=== PATIENT | female | born 1945 | race Caucasian/White ===

== ENCOUNTER 2017-03-05 05:00 | Day surgery (SDC) | payer BC ==
[2017-03-02 08:23] VITALS: BMI 47.0
--- NOTE | 2017-03-02 08:46 | PAT Medication Instructions ---
Service Date Mar 02, 2017. Current Home Medication List Aspirin (Aspirin Adult Low Strengt), 81 MG PO QAM Calcium Carbonate-Vitamin D (Calcium + D), 1 TAB PO QAM Fish Oil (Troy-3), 1 CAP PO QAM Qidimueynit-Wktngiysoev-Aiv C- (Glucosamine Chondroitin), 1 CAP PO QAM Magnesium Oxide (Mag-Ox), Unknown Dose PO QAM Multivitamin (Multivitamin), 1 TAB PO QAM Simvastatin (Zocor), 80 MG PO QAM Medication Instructions For Your Scheduled Surgery - Hold the following medications as of 03/02/17: Fish Oil (Troy-3), 1 CAP PO QAM (already stopped at surgeon's request) Rvdesnesrxi-Bxthqahhdze-Uvt C- (Glucosamine Chondroitin), 1 CAP PO QAM - Hold the following medications the morning of surgery: Calcium Carbonate-Vitamin D (Calcium + D), 1 TAB PO QAM Magnesium Oxide (Mag-Ox), Unknown Dose PO QAM Multivitamin (Multivitamin), 1 TAB PO QAM - Take the following medications the morning of surgery with a sip of water OTHERWISE NOTHING TO EAT OR DRINK AFTER MIDNIGHT : Aspirin (Aspirin Adult Low Strengt), 81 MG PO QAM (okay to continue per surgeon) Simvastatin (Zocor), 80 MG PO QAM If you have any questions please call us at [phone] or [phone] or [phone]
[~2017-03-05] VITALS: Ht 160 cm; Wt 122.3 kg
[~2017-03-05 05:00] MED LIST: ASPI-321 PO; CALC600T9 PO; GLUC1CAP35 PO; MAGN400T6 PO; MULT-506 PO; OMEG10007 PO; SIMV80TA2 PO
[2017-03-05 05:29] VITALS: BP 171/91; PULSE 88; TEMP 36.7; O2SAT 96; Ht 160 cm; Wt 122.3 kg
[2017-03-05] MEDS ORDERED: LACTATED RINGER'S 1000ML 1,000 ML IV SCH (06:00)
[2017-03-05] MEDS ORDERED: CEFAZOLIN 3000 MG/65 ML D5W IV SCH (06:00)
[2017-03-05] MEDS ORDERED: BACITRACIN OINT 15 GM TUBE ONE (06:35)
[2017-03-05] MEDS ORDERED: BUPIVACAINE 0.5 % 5 MG/1 ML MPF 30ML VIAL ONE (06:35)
[2017-03-05] MEDS ORDERED: LIDOCAINE HCL 1% 20 ML VIAL ONE (06:35)
[2017-03-05] MEDS ORDERED: PROPOFOL IV EMULSION 10 MG/ML 20 ML VIAL IV ONE (06:43)
[2017-03-05] MEDS ORDERED: ONDANSETRON INJ 2 MG/ML 2 ML VIAL ONE (06:43)
[2017-03-05] MEDS ORDERED: DEXAMETHASONE SOD INJ 4 MG/ML VIAL ONE (06:43)
[2017-03-05] MEDS ORDERED: LIDOCAINE HCL 2% 2 ML VIAL (20MG/ML) ONE (06:43)
[2017-03-05] MEDS ORDERED: KETOROLAC TROMETHAMINE 30 MG/ML VIAL ONE (06:43)
[2017-03-05] MEDS ORDERED: MIDAZOLAM HCL 1 MG/ML 2ML VIAL ONE (06:44)
[2017-03-05] MEDS ORDERED: FENTANYL CITRATE INJ 50 MCG/1 ML 2 ML VIAL ONE ×2 (06:44→08:03)
--- NOTE | 2017-03-05 07:13 | History & Physical Bridge Note ---
H&P Re-Evaluation Bridge Note: I have examined the patient, reviewed the History & Physical and in the interval since the performance of the History & Physical I have noted the following changes of clinical significance: No changes noted
[2017-03-05] MEDS ORDERED: CLINDAMYCIN 600 MG/54 ML D5W IV ONE (07:16)
[2017-03-05] MEDS ORDERED: PHENYLEPHRINE 100MCG/ML 5ML SYR ONE (07:55)
[2017-03-05] MEDS ORDERED: ROCURONIUM BROMIDE 10 MG/ML 5 ML VIAL IV ONE ×2 (07:55→12:41)
[2017-03-05] MEDS ORDERED: FLUMAZENIL 0.1 MG/1 ML 10 ML VIAL IV PRN (08:00)
[2017-03-05] MEDS ORDERED: NALOXONE HCL 0.4 MG/1 ML VIAL/CARP IV PRN (08:00)
[2017-03-05] MEDS ORDERED: ATROPINE SULFATE 0.1 MG/ML 5ML SYR IV PRN (08:00)
[2017-03-05] MEDS ORDERED: PHENYLEPHRINE 100MCG/ML 5ML SYR IV PRN (08:00)
[2017-03-05] MEDS ORDERED: FENTANYL CITRATE INJ 50 MCG/1 ML 2 ML VIAL IV PRN (08:00)
[2017-03-05] MEDS ORDERED: ONDANSETRON INJ 2 MG/ML 2 ML VIAL IV PRN ×2 (08:00→09:15)
[2017-03-05] MEDS ORDERED: LABETALOL HCL IV 5 MG/ML 20ML IV PRN (08:00)
[2017-03-05] MEDS ORDERED: HYDROmorphone INJ 2 MG/ML SYR/VIAL IV PRN (08:00)
[2017-03-05] MEDS ORDERED: MEPERIDINE HCL 25 MG/ML CARP IV PRN (08:00)
[2017-03-05] MEDS ORDERED: EpHEDrine SULFATE INJ 50 MG/ML AMP IV PRN (08:00)
[2017-03-05] MEDS ORDERED: NEOSTIGMINE METHYLSULFATE 5 MG/5 ML SYR ONE (08:28)
[2017-03-05] MEDS ORDERED: GLYCOPYRROLATE INJ 0.2 MG/ML VIAL ONE (08:28)
[2017-03-05] MEDS ORDERED: SODIUM CHLORIDE 0.9% 1000ML 1,000 ML IV SCH (09:10)
--- NOTE | 2017-03-05 09:10 | [facility] Post Operative Brief Note ---
Immediate Operative Summary Operative Date Mar 05, 2017. Pre-Operative Diagnosis Left Ventral Hernia Post-Operative Diagnosis Left Ventral Hernia Procedure(s) Performed Left Ventral Hernia Repair with Mesh Surgeon Dr. Pineda Mission Systems Engineer Surgeon(s) regional vice president surgical sales Estimated Blood Loss 10mL Findings ventral hernia, size 3x3cm, Specimens NONE PER SURGEON Drains none Anesthesia general Complication(s) None Disposition Recovery Room / PACU
[2017-03-05] MEDS ORDERED: OXYC-57 PO (09:13)
[2017-03-05] MEDS ORDERED: MoRPHine SULFATE 2 MG/ML CARP IV PRN (09:15)
[2017-03-05] MEDS ORDERED: OXYCODONE/ACETAMINOPHEN 5-325 TAB PO PRN (09:15)
--- NOTE | 2017-03-05 09:17 | Discharge Instructions ---
Discharge Instructions Date of Service Mar 05, 2017. Visit Reason for Visit: Ventral Hernia Discharge Discharge Diagnosis / Problem: S/P ventral hernia repair with mesh Discharge Goals Goal(s): Decrease discomfort, Improve function Activity Recommendations Activity Limitations: per Instructions/Follow-up section Lifting Limitations: no more than 25 pounds Exercise/Sports Limitations: rest today May Resume Sexual Activity: when tolerated Shower/Bathe: may shower/bathe in 3 days Driving or Machine Use: resume 3 days after discharge Anesthesia . Post Anesthesia Instructions: If you have had General Anesthesia or IV Sedation: * Do not drive today. * Resume driving when surgeon permits. * Do not make important decisions or sign legal documents today. * Call surgeon for: 1. Temperature elevations greater than 101 degrees F. 2. Uncontrollable pain. 3. Excessive bleeding. 4. Persistent nausea and vomiting. 5. Medication intolerance (nausea, vomiting or rash). * For nausea and vomiting use only clear liquids such as: tea, soda, bouillon until nausea subsides, then gradually increase diet as tolerated. * If you have any concerns or questions, call your surgeon's office. If physician is unavailable and it is an emergency, call 911 or go to the nearest emergency room. . Instructions / Follow-Up Instructions / Follow-Up keep the dressing on for 4 days, she can take a shower on 03/09/2017, no driving while taking pain medicine. Follow up 1 week, Diet Recommendations Recommended Home Diet: resume previous diet Procedures Procedures Performed: Left Ventral Hernia Repair with Mesh Pending Studies Studies pending at discharge: no Medical Emergencies . Who to Call and When: Medical Emergencies: If at any time you feel your situation is an emergency, please call 911 immediately. . Non-Emergent Contact Non-Emergency issues call your: Surgeon Call Non-Emergent contact if: you have a fever, temperature is above 100.5, your pain is not controlled, your pain is worsening, wound has increased drainage, wound has increased redness . . "Provider Documentation" section prepared by Maris Pineda. . [place] Drug Monitoring Program Search Results: no issues identified
[2017-03-05] MEDS ORDERED: ALBUTEROL HFA INHALER 8.5 GM INH ONE (09:18)
--- NOTE | 2017-03-05 09:46 | Anesthesiology Progress Note ---
Anesthesia Post Op Note Date & Time Mar 05, 2017 at 09:46 Vital Signs Pain Intensity: 4 Vital Signs Past 12 Hours Date Time Temp Pulse Resp B/P (MAP) Pulse Ox O2 Delivery O2 Flow Rate FiO2 03/05/17 09:40 36.5 77 16 138/79 93 Nasal Cannula 2 03/05/17 09:30 81 16 147/88 92 Nasal Cannula 3 03/05/17 09:20 98 16 153/82 92 Oxymask 10 03/05/17 09:11 36.9 98 16 159/96 93 Oxymask 15 03/05/17 05:29 36.7 88 20 171/91 (117) 96 Room Air Notes Mental Status: alert / awake / arousable, participated in evaluation Pt Amnestic to Procedure: Yes Nausea / Vomiting: adequately controlled Pain: adequately controlled Airway Patency, RR, SpO2: stable & adequate BP & HR: stable & adequate Hydration State: stable & adequate Anesthetic Complications: no major complications apparent
[2017-03-05 09:50] VITALS: BP 154/80; PULSE 79; TEMP 36.5; O2SAT 92
[2017-03-05 10:20] VITALS: BP 158/83; PULSE 85; TEMP 36.6; O2SAT 92
[2017-03-05 10:50] VITALS: BP 148/70; PULSE 88; TEMP 36.7; O2SAT 92
--- NOTE | 2017-03-05 11:32 | OPERATIVE REPORT ---
DATE OF OPERATION: 03/05/2017 PREOPERATIVE DIAGNOSIS: Left abdominal ventral hernia. POSTOPERATIVE DIAGNOSIS: Same. OPERATION: Open repair of left abdominal ventral hernia with mesh. SURGEON: Maris Pineda MD ANESTHESIA: General. ESTIMATED BLOOD LOSS: About 10 mL. FINDINGS: Ventral hernia size about 3 x 3 cm. COMPLICATIONS: None. INDICATIONS FOR THE PROCEDURE: This is a 72-year-old female who presented with symptomatic left abdominal ventral hernia and patient feels bulging pain and the patient told she will have ventral hernia repair with mesh. I did talk to the patient and patient's daughter about the benefit and risk, alternate procedure. I indicated the risks may include but not limited such as bleeding, infection, hernia recurrence, myocardial infarction, DVT, stroke, even and injury to bowel. They understand these. The patient signed informed consent and I answered all questions. DETAILS OF PROCEDURE: We brought the patient to the OR, put the patient in the supine position. The patient received SCD on bilateral legs to prevent DVT. Also, the patient received 600 mg of clindamycin for IV prophylactic antibiotic. The patient received general anesthesia without difficulty. The abdomen was prepped and draped in routine sterile fashion. After time out, I made a 6 cm incision just parallel to the left side umbilical just above the hernia and opened the subcutaneous layer and found the patient had the site containing hernia sac. The hernia sac was opened and reduced all of the hernia sac contents back in the abdominal cavity. Then we found the patient had a hernia size about 3 x 3 cm. I chose a 6.4 cm x 6.4 cm round mesh to repair the hernia. I used a #1 Ethibond to fix the mesh to the fascial layer 360 degree, tied all the sutures and rechecked the hernia fixed with mesh nicely and no tension and no injury to bowel, no active bleeding. Then I closed the subcutaneous layer by using 2-0 Vicryl continuous running, closed skin by using staple. We put the dressing on. The patient tolerated the procedure well. All the instrument, needle and sponge count correct x2 at the end of case and the patient transferred to recovery room in stable condition. After the procedure, I did talk to the patient and daughter about the OR finding and procedure we did. She understands. I also gave the patient and the patient's family member about the postop care instruction, they understand. I attest to the content of the Intraoperative Record and any orders documented therein. Any exceptions are noted below. MTDD
[2017-03-06] MEDS ORDERED: CLINDAMYCIN 600 MG/54 ML D5W IV SCH (06:00)
== END 2017-03-05 11:15 | disposition home or self-care (01) ==
LOC: C.ACU 05:00
PROVIDERS: ATTEND Surgery
DX: K43.9 Ventral hernia without obstruction or gangrene (principal); E66.01 Morbid (severe) obesity due to excess calories